=== PATIENT | female | born 1940 | race Caucasian/White ===

== ENCOUNTER 2016-10-19 19:26 | Emergency (ER) | payer OTHER ==
[2016-10-19 19:32] VITALS: BP 149/88; PULSE 79; TEMP 98
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
== END 2016-10-19 21:21 | disposition home or self-care (01) ==
LOC: JERFT 19:26
DX: M25.562 Pain in left knee (principal); J45.909 Unspecified asthma, uncomplicated; I10 Essential (primary) hypertension; E11.9 Type 2 diabetes mellitus without complications
CPT/HCPCS: 73562-TC-LT; 99281-25